=== PATIENT | female | born 1995 | race Caucasian/White ===

== ENCOUNTER 2021-09-09 01:36 | Inpatient (IN) | payer OTHER, SELFPAY ==
[2021-09-09] VITALS (7 sets, daily range): BP systolic 104–151; BP diastolic 54–83; PULSE 72–96; RESP 14–18; TEMP 36.4–37.3; O2SAT 98–99; BMI 25.7
--- NOTE | ~2021-09-09 | CT_ITS ---
EXAMINATION: CT ABDOMEN AND PELVIS WITHOUT CONTRAST CLINICAL INFORMATION: Left flank pain COMPARISON: None TECHNIQUE: Multidetector volumetric imaging was performed from the superior aspect of the liver through the pubic symphysis. Sagittal and coronal reformatted images were obtained on the technologist's workstation. This CT examination was performed using dose optimization techniques as appropriate, variously including the following: *Automated exposure control *Adjustment of mA and/or kV according to patient size (this includes techniques or standardized protocols for targeted exams where dose is matched to indication/reason for exam; i.e. extremities or head) *Use of iterative reconstruction technique DLP: 440 mGy-cm FINDINGS: LUNG BASES: The visualized lung bases are unremarkable. LIVER, GALLBLADDER, AND BILIARY TREE: The liver is normal in size, shape, and attenuation. No focal hepatic lesion or biliary ductal dilatation is present. Gallbladder appears contracted. PANCREAS: Unremarkable. SPLEEN: Unremarkable. ADRENAL GLANDS: Unremarkable. KIDNEYS AND URETERS: Limited assessment of the renal parenchyma in the absence of intravenous contrast. No hydronephrosis bilaterally. There is suggestion of subtle perinephric stranding bilaterally. Small hypodensity in the mid right kidney favors a cyst; no follow-up recommended. No calculi identified. Small calculus in the lower lateral left pelvis is favored to represent a phlebolith. BLADDER: Unremarkable. GASTROINTESTINAL TRACT: No evidence of bowel obstruction or significant wall thickening. The appendix is unremarkable. No free fluid or free air is seen. ABDOMINAL WALL: No significant hernia is appreciated. LYMPH NODES: No lymphadenopathy is seen, though assessment is limited in the absence of intravenous contrast. VASCULAR: Unremarkable. PELVIC VISCERA: Unremarkable. OSSEOUS STRUCTURES: Bilateral L5 pars defects are noted. CT/CT abdomen pelvis wo con IMPRESSION: No hydronephrosis. Subtle bilateral perinephric stranding may be present, of uncertain clinical significance. There is limited assessment of the renal parenchyma in the absence of intravenous contrast, and correlation with urinalysis/laboratory values is advised, as pyelonephritis cannot be excluded. Fleischner guidelines were followed.
[2021-09-09 02:19] LABS: MANUAL DIFF FLAG NO
[2021-09-09 02:21] LABS: Basophils Percent Auto 0.3 % (0-2); Eosinophils Absolute Auto 0.1 X10*3/uL (0.0-0.4); Eosinophils Percent Auto 0.9 % (0-4); Hematocrit 34.2 % (37.0-47.0); Hemoglobin 11.5 g/dl (12.0-16.0); Imm Gran Abs Auto 0.05 X10*3/uL (0.00-0.03); Imm Gran Pct Auto 0.4 % (0.0-0.4); Lymphocytes Absolute Auto 2.5 X10*3/uL (1.2-4.9); Lymphocytes Percent Auto 17.2 % (20-40); Mean Corpuscular HGB Conc 33.6 g/dl (31.0-35.0); Mean Corpuscular Hemoglobin 27.9 pg (27.0-33.0); Mean Platelet Volume 8.9 fL (9.4-12.3); Monocytes Absolute Auto 1.1 X10*3/uL (0.1-1.2); Monocytes Percent Auto 7.6 % (2-11); Neutrophils Absolute Auto 10.5 x10*3/uL (2.0-8.3); Neutrophils Percent Auto 73.6 % (45-73); Platelet Count 331 X10*3/uL (160-400); Red Blood Count 4.12 X10*6/uL (4.20-5.50); Red Cell Distribution Width 12.6 % (11.0-16.0); White Blood Count 14.3 X10*3/uL (4.8-10.8)
[2021-09-09 02:22] LABS: Appearance Urine CLEAR; Color Urine YELLOW; Glucose Urine UA NEG (NEG); Leukocyte Esterase Urine NEG (NEG); Nitrite Urine NEG (NEG); UACC Culture Trigger NO; Urine Blood TRACE (NEG); Urine Ketones NEG (NEG); Urine Protein 1+ MG/DL (NEG-TRACE)
[2021-09-09 02:29] LABS: UPreg QC Valid YES; Urine Pregnancy NEGATIVE (NEGATIVE)
[2021-09-09 02:35] LABS: Bacteria Urine TRACE /LPF; Mucus Urine 1+ /LPF; RBC Urine 0-2 /HPF (0); Squamous Epithelial Cell Urine 2+ /LPF; WBC Urine 0 /HPF (0-4)
[2021-09-09 02:37] LABS: Alanine Aminotransferase 13 U/L (0-31); Alkaline Phosphatase 28 U/L (39-117); Anion Gap 11 (12-20); Aspartate Amino Transferase 19 U/L (5-31); Bilirubin Total 0.3 mg/dL (0.0-1.0); Blood Urea Nitrogen 20 mg/dL (9-16); Calcium 9.8 mg/dL (8.4-10.2); Carbon Dioxide 24 mmol/L (22-29); Chloride 107 mmol/L (96-108); Creatinine Clr Calc Pharmacy 49.2; Estimated Glomerular Filt Rate 40; Glucose Random 87 mg/dL (60-115); Sodium 138 mmol/L (135-145); Total Protein 6.3 g/dL (6.5-8.0)
--- NOTE | 2021-09-09 03:07 | ED_ITS ---
HPI - Abdominal Pain General Chief Complaint: Abdominal Pain Stated Complaint: kidney pain Time Seen by Provider: 09/09/21 03:06 Source: patient Mode of arrival: ambulatory Limitations: no limitations History of Present Illness MD elicited complaint: abdominal pain and flank pain Onset (ago): day(s) (5) Pain Consistency: constant Location: LUQ and L flank Severity: moderate Quality: stabbing Radiation: LLQ Migration to: no migration Exacerbating factors: nothing Relieving factors: nothing Context: other (fam hx of kidney stones. ) Associated symptoms: nausea and chills Treatments prior to arrival: other (on cipro as of saturday by PCP but only had blood in urine) Related Data Allergies Allergy/AdvReac Type Severity Reaction Status Date / Time amoxicillin [AMOXICILLIN] Allergy Mild HIVES Verified 09/09/21 01:51 clindamycin [CLINDAMYCIN] Allergy Mild HIVES Verified 09/09/21 01:51 Penicillins [PENICILLINS] Allergy Mild HIVES Verified 09/09/21 01:51 Sulfa (Sulfonamide Allergy Mild HIVES Verified 09/09/21 01:51 Antibiotics) [SULFA (SULFONAMIDE ANTIBIOTICS)] Review of Systems Review of Systems Constitutional : No Fever, No Chills ENT/Mouth : No sore throat Eyes: No Eye Pain, No Swelling, No Redness Cardiovascular : No Chest Pain, No SOB Respiratory : No Cough, No Sputum, No Wheezing Gastrointestinal : positive Nausea, no Vomiting, No Diarrhea, positive abdominal pain Genitourinary : no Dysuria, positive urinary frequency, positive Hematuria, positive Flank Pain, no hesitancy Musculoskeletal : No joint pain, No Myalgias Skin : No Skin Lesions, No rash Neuro : No Weakness, No Numbness, No Headache Psych : No Anxiety/Panic, No Depression Heme/Lymph: No Bruising, No Lymphadenopathy Endocrine : No Polyuria, No Polydipsia All other systems reviewed and are negative Physical Exam Vital Signs: Vital Signs: Last Vital Signs Temp 97.7 F 09/09/21 01:46 Pulse 96 09/09/21 01:46 Resp 16 09/09/21 01:46 BP 151/80 H 09/09/21 01:46 Pulse Ox 99 09/09/21 01:46 BMI result Body Mass Index 25.7 Appearance: Alert. Oriented X3. No acute distress. Eyes: Pupils equal, round and reactive to light. ENT: Pharynx normal. Neck: Normal inspection. Neck supple. CVS: Normal heart rate and rhythm. Pulses normal. Respiratory: No respiratory distress. Breath sounds normal. Abdomen: Soft and nontender. Back: mod L CVA ttp Skin: Skin warm and dry. Normal skin color. Normal skin turgor. Extremities: No lower extremity edema. No calf ttp Neuro: Oriented X 3. No motor deficit. No sensory deficit. Course Course Course Narrative: Cr 1.55 - 2L of IVF ordered repeat IV morphine for pain will admit for further management of GABRIEL and likely pyelonephritis MDM - Abdominal Pain MDM Narrative Medical decision making narrative: 26 yo female with no sig PMH does have a strong family hx of kidney stones, currently on cipro for symptoms but states only hematuria. At this time will need labs, UA, CT scan for renal colic. Declines pain medications at this time. Dispo per result and findings. Differential Diagnosis Differential diagnosis: Likely calculus of kidney and renal colic; Unlikely acute appendicitis Lab Data Result diagrams: 09/09/21 02:01 09/09/21 05:22 Labs: Lab Results 09/09/21 09/09/21 09/09/21 Range/Units 02:01 02:01 02:01 WBC 14.3 H (4.8-10.8) X10*3/uL RBC 4.12 L (4.20-5.50) X10*6/uL Hgb 11.5 L (12.0-16.0) g/dl Hct 34.2 L (37.0-47.0) % MCV 83.0 (80.0-98.0) fL MCH 27.9 (27.0-33.0) pg MCHC 33.6 (31.0-35.0) g/dl RDW 12.6 (11.0-16.0) % Plt Count 331 (160-400) X10*3/uL MPV 8.9 L (9.4-12.3) fL Immature Gran % (Auto) 0.4 (0.0-0.4) % Neut % (Auto) 73.6 H (45-73) % Lymph % (Auto) 17.2 L (20-40) % [place] % (Auto) 7.6 (2-11) % Eos % (Auto) 0.9 (0-4) % Baso % (Auto) 0.3 (0-2) % Lymph # (Auto) 2.5 (1.2-4.9) X10*3/uL [place] # (Auto) 1.1 (0.1-1.2) X10*3/uL Eos # (Auto) 0.1 (0.0-0.4) X10*3/uL Baso # (Auto) 0.0 (0.0-0.2) X10*3/uL Abs Immat Gran (auto) 0.05 H (0.00-0.03) X10*3/uL Absolute Neuts (auto) 10.5 H (2.0-8.3) x10*3/uL Absolute Nucleated RBC 0.000 (0.0-0.012) X10*3/uL Nucleated RBC % (auto) 0.0 (0.0-0.2) /100WBC Sodium 138 (135-145) mmol/L Potassium 4.0 (3.3-5.1) mmol/L Chloride 107 (96-108) mmol/L Carbon Dioxide 24 (22-29) mmol/L Anion Gap 11 L (12-20) BUN 20 H (9-16) mg/dL Creatinine 1.55 H (0.5-1.4) mg/dL Estim Creat Clear Calc 49.2 Estimated GFR 40 Random Glucose 87 (60-115) mg/dL Lactic Acid (0.5-2.0) mmol/L Calcium 9.8 (8.4-10.2) mg/dL Total Bilirubin 0.3 (0.0-1.0) mg/dL AST 19 (5-31) U/L ALT 13 (0-31) U/L Alkaline Phosphatase 28 L (39-117) U/L Total Protein 6.3 L (6.5-8.0) g/dL Albumin 4.0 (3.5-5.0) g/dL Urine Color YELLOW Urine Appearance CLEAR Urine pH 6.0 (5.0-8.0) Ur Specific [place] 1.010 (1.005-1.025) Urine Protein 1+ H (NEG-TRACE) MG/DL Urine Glucose (UA) NEG (NEG) MG/DL Urine Ketones NEG (NEG) MG/DL Urine Blood TRACE (NEG) Urine Nitrite NEG (NEG) Ur Leukocyte Esterase NEG (NEG) Urine RBC 0-2 (0) /HPF Urine WBC 0 (0-4) /HPF Ur Squamous Epith Cells 2+ /LPF Urine Bacteria TRACE /LPF Urine Mucus 1+ /LPF Urine Test (NEGATIVE) 09/09/21 09/09/21 09/09/21 Range/Units 02:01 04:29 05:22 WBC (4.8-10.8) X10*3/uL RBC (4.20-5.50) X10*6/uL Hgb (12.0-16.0) g/dl Hct (37.0-47.0) % MCV (80.0-98.0) fL MCH (27.0-33.0) pg MCHC (31.0-35.0) g/dl RDW (11.0-16.0) % Plt Count (160-400) X10*3/uL MPV (9.4-12.3) fL Immature Gran % (Auto) (0.0-0.4) % Neut % (Auto) (45-73) % Lymph % (Auto) (20-40) % [place] % (Auto) (2-11) % Eos % (Auto) (0-4) % Baso % (Auto) (0-2) % Lymph # (Auto) (1.2-4.9) X10*3/uL [place] # (Auto) (0.1-1.2) X10*3/uL Eos # (Auto) (0.0-0.4) X10*3/uL Baso # (Auto) (0.0-0.2) X10*3/uL Abs Immat Gran (auto) (0.00-0.03) X10*3/uL Absolute Neuts (auto) (2.0-8.3) x10*3/uL Absolute Nucleated RBC (0.0-0.012) X10*3/uL Nucleated RBC % (auto) (0.0-0.2) /100WBC Sodium (135-145) mmol/L Potassium (3.3-5.1) mmol/L Chloride (96-108) mmol/L Carbon Dioxide (22-29) mmol/L Anion Gap (12-20) BUN (9-16) mg/dL Creatinine 1.50 H (0.5-1.4) mg/dL Estim Creat Clear Calc 50.8 Estimated GFR 41 Random Glucose (60-115) mg/dL Lactic Acid 0.7 (0.5-2.0) mmol/L Calcium (8.4-10.2) mg/dL Total Bilirubin (0.0-1.0) mg/dL AST (5-31) U/L ALT (0-31) U/L Alkaline Phosphatase (39-117) U/L Total Protein (6.5-8.0) g/dL Albumin (3.5-5.0) g/dL Urine Color Urine Appearance Urine pH (5.0-8.0) Ur Specific [place] (1.005-1.025) Urine Protein (NEG-TRACE) MG/DL Urine Glucose (UA) (NEG) MG/DL Urine Ketones (NEG) MG/DL Urine Blood (NEG) Urine Nitrite (NEG) Ur Leukocyte Esterase (NEG) Urine RBC (0) /HPF Urine WBC (0-4) /HPF Ur Squamous Epith Cells /LPF Urine Bacteria /LPF Urine Mucus /LPF Urine Test NEGATIVE (NEGATIVE) Discharge Plan Discharge Clinical Impression: GABRIEL (acute kidney injury), Pyelonephritis, Leukocytosis Patient Disposition: Admitted As Inpatient [facility] Past Medical History Attestation statement: The following information was validated with the patient. Medical History No known health problems Social History Social History (Updated 09/09/21 @ 03:21 by Ashly Srivastava DO) Patient Tobacco Use Status: Never used Tobacco Advance Directives: No Advance Directives Information Provided: Yes Patient : No
[2021-09-09] MEDS: 0.9 % Sodium Chloride 1,000 ML 999 ML IVCONT ×2 (03:09→04:22)
--- NOTE | 2021-09-09 03:18 | PC.NURSE ---
Pt returns from CT, awaiting results @ this time. IVF infusing per MAR.
[2021-09-09] MEDS: ondansetron HCL 4 MG/2 ML VIAL IVPUSH ×2 (04:21→18:55)
[2021-09-09] MEDS: Morphine Sulfate 2 MG/ML CARTRIDGE IVPUSH ×2 (04:21→10:38)
[2021-09-09] MEDS: cefTRIAXone sodium 1 GM in 0.9 % Sodium Chloride 50 ML IV (04:41)
[2021-09-09 04:48] LABS: Lactic Acid 0.7 mmol/L (0.5-2.0)
--- NOTE | 2021-09-09 05:36 | PC.NURSE ---
Pt requesting additional pain medication, notified.
[2021-09-09 05:41] LABS: Creatinine Clr Calc Pharmacy 50.8; Estimated Glomerular Filt Rate 41
[2021-09-09] MEDS: Morphine Sulfate 4 MG/ML CARTRIDGE IVPUSH ×2 (05:44→07:34)
--- NOTE | 2021-09-09 05:50 | PC.NURSE ---
Refused to go with XRay when called for CXR.
[2021-09-09] MEDS: 0.9 % Sodium Chloride 1,000 ML 100 ML IVCONT (06:01)
[2021-09-09 06:09] LABS: COVID-19 Test Negative (Negative)
--- NOTE | 2021-09-09 07:24 | PC.NURSE ---
pt alert and reports right sided flank pain 6/10 and is requesting something else for pain
--- NOTE | 2021-09-09 08:01 | PM.IMHP ---
History of Present Illness Date of Service: 09/09/21 Chief Complaint: left flank pain 26 year old female, otherwise healthy who experienced urinary symptoms about a week ago and was seen in the offeice about 3 days ago and prescribed antibiotics for UTI and comes in with left flank pain and not feeing well. She describes no dysyria and no fever. Work up in ED shows wBC of 14K, UA shows trace bacteria otherwise unremarkable. CT of [place] shows bilateral perinephric standing, Creatinine is 1.5. Review of Systems Review of Systems: Gen: no fever Resp: no sob, no cough CV: no chest, no POST, no leg edema GI: No n/v, no abd pain : flnak pain, no dysuria Neuro: No confusion Yes all other systems are reviewed and are negative [facility] Medical History (Updated 09/09/21 @ 08:08 by Marcin Berumen MD) Acne No known health problems Pertinent family history: reports no family of chronic disease and no chronic uranry issues Social History Patient Tobacco Use Status: Never used Tobacco Use of substances other than those prescribed or required for medical reasons: No Advance Directives: No Advance Directives Information Provided: Yes Patient : No Meds Allergies Allergy/AdvReac Type Severity Reaction Status Date / Time amoxicillin [AMOXICILLIN] Allergy Mild HIVES Verified 09/09/21 01:51 clindamycin [CLINDAMYCIN] Allergy Mild HIVES Verified 09/09/21 01:51 Penicillins [PENICILLINS] Allergy Mild HIVES Verified 09/09/21 01:51 Sulfa (Sulfonamide Allergy Mild HIVES Verified 09/09/21 01:51 Antibiotics) [SULFA (SULFONAMIDE ANTIBIOTICS)] Active Medications: Current Medications Sodium Chloride (Ns) 1,000 mls @ 100 mls/hr IVCONT .Q10H SHANTEL Last Admin: 09/09/21 06:01 Dose: 100 mls/hr Documented by: Home Medications Medication Instructions Recorded Confirmed Last Taken Type No Known Home Meds 09/09/21 09/09/21 Unknown History Physical Exam Vital Signs and Narrative: Vital Signs: Last Vital Signs Temp 98.0 F 09/09/21 07:59 Pulse 74 09/09/21 07:59 Resp 16 09/09/21 07:59 BP 125/75 09/09/21 07:59 Pulse Ox 98 09/09/21 07:59 BMI result Body Mass Index 25.7 Const: Other: Constitutional: Alert, in no distress, Mental Status: Oriented to person, place and time. Eyes: Pupils are equal, round and reactive to light. Ear, Nose and Throat: Oropharynx clear, mucous membranes moist. Ears and nose without eformities. Trachea midline. Respiratory: Clear to auscultation. No wheezing, rales or rhonchi. Cardiovascular: S1 S2 regular. No murmurs, rubs or gallops. Gastrointestinal: Abdomen soft, non-tender, non-distended. Normal bowel sounds.? : mild left flank tenderness Neurologic: Cranial nerves II-XII grossly intact. No focal neurological deficits. Moves all extremities spontaneously.? Skin: No rashes or lesions.? Musculoskeletal: No cyanosis or clubbing. Psychiatric: Normal mood and affect? Results Labs CBC and Chem 7: 09/09/21 02:01 09/09/21 05:22 Labs: Laboratory Results - last 24 hr 09/09/21 09/09/21 09/09/21 02:01 02:01 02:01 MCV 83.0 MCH 27.9 MCHC 33.6 RDW 12.6 Plt Count 331 MPV 8.9 L Immature Gran % (Auto) 0.4 Neut % (Auto) 73.6 H Lymph % (Auto) 17.2 L [place] % (Auto) 7.6 Eos % (Auto) 0.9 Baso % (Auto) 0.3 Lymph # (Auto) 2.5 [place] # (Auto) 1.1 Eos # (Auto) 0.1 Baso # (Auto) 0.0 Abs Immat Gran (auto) 0.05 H Absolute Neuts (auto) 10.5 H Absolute Nucleated RBC 0.000 Nucleated RBC % (auto) 0.0 Anion Gap 11 L Estim Creat Clear Calc 49.2 Estimated GFR 40 Random Glucose 87 Lactic Acid Calcium 9.8 Total Bilirubin 0.3 AST 19 ALT 13 Alkaline Phosphatase 28 L Total Protein 6.3 L Albumin 4.0 Urine Color YELLOW Urine Appearance CLEAR Urine pH 6.0 Ur Specific [place] 1.010 Urine Protein 1+ H Urine Glucose (UA) NEG Urine Ketones NEG Urine Blood TRACE Urine Nitrite NEG Ur Leukocyte Esterase NEG Urine RBC 0-2 Urine WBC 0 Ur Squamous Epith Cells 2+ Urine Bacteria TRACE Urine Mucus 1+ Urine Test COVID-19 (HEMANTH) COVID-19 Clin Com 09/09/21 09/09/21 09/09/21 02:01 04:29 05:22 MCV MCH MCHC RDW Plt Count MPV Immature Gran % (Auto) Neut % (Auto) Lymph % (Auto) [place] % (Auto) Eos % (Auto) Baso % (Auto) Lymph # (Auto) [place] # (Auto) Eos # (Auto) Baso # (Auto) Abs Immat Gran (auto) Absolute Neuts (auto) Absolute Nucleated RBC Nucleated RBC % (auto) Anion Gap Estim Creat Clear Calc 50.8 Estimated GFR 41 Random Glucose Lactic Acid 0.7 Calcium Total Bilirubin AST ALT Alkaline Phosphatase Total Protein Albumin Urine Color Urine Appearance Urine pH Ur Specific [place] Urine Protein Urine Glucose (UA) Urine Ketones Urine Blood Urine Nitrite Ur Leukocyte Esterase Urine RBC Urine WBC Ur Squamous Epith Cells Urine Bacteria Urine Mucus Urine Test NEGATIVE COVID-19 (HEMANTH) COVID-19 Clin Com 09/09/21 05:48 MCV MCH MCHC RDW Plt Count MPV Immature Gran % (Auto) Neut % (Auto) Lymph % (Auto) [place] % (Auto) Eos % (Auto) Baso % (Auto) Lymph # (Auto) [place] # (Auto) Eos # (Auto) Baso # (Auto) Abs Immat Gran (auto) Absolute Neuts (auto) Absolute Nucleated RBC Nucleated RBC % (auto) Anion Gap Estim Creat Clear Calc Estimated GFR Random Glucose Lactic Acid Calcium Total Bilirubin AST ALT Alkaline Phosphatase Total Protein Albumin Urine Color Urine Appearance Urine pH Ur Specific [place] Urine Protein Urine Glucose (UA) Urine Ketones Urine Blood Urine Nitrite Ur Leukocyte Esterase Urine RBC Urine WBC Ur Squamous Epith Cells Urine Bacteria Urine Mucus Urine Test COVID-19 (HEMANTH) Negative COVID-19 Clin Com See Note Imaging Radiologist's Impressions: Impressions Abdomen/Pelvis CT 09/09/21 03:14 IMPRESSION: No hydronephrosis. Subtle bilateral perinephric stranding may be present, of uncertain clinical significance. There is limited assessment of the renal parenchyma in the absence of intravenous contrast, and correlation with urinalysis/laboratory values is advised, as pyelonephritis cannot be excluded. Fleischner guidelines were followed. Assessment and Plan (1) GABRIEL (acute kidney injury): Status: Acute (2) Pyelonephritis: Status: Acute Plan 26 year old female recently treated for UTI on outpatient basis and here with peristent flank pain, leukocytosis and has GABRIEL 1/UTI/Pyelonephritis--partially treated..Not septic -Treat with Ceftriaxone and if better by tomorrow change to oral Ceftin and discharge -follow cultures - Morphine, Oxycodone for pain 2/ GABRIEL--likely pre renal state--Hydraate and repeat labs tomorrow 3/ low riks for DVT--out of bed and ambulate Quality Stroke Does the patient have a stroke diagnosis?: No VTE Prior VTE?: No VTE Risk Level:: Medical - low VTE Device Contraindication: Treatment Not Indicated VTE Drug Contraindication: Treatment Not Indicated
[2021-09-09] MEDS: 0.9 % Sodium Chloride Flush 3 ML SYRINGE IVFLUSH (08:45)
[2021-09-09] MEDS: Dextrose 5 % and 0.45 % NaCl 1,000 ML 100 ML IVCONT ×2 (08:46→18:43)
[2021-09-09] MEDS: Acetaminophen 325 MG TABLET 650 MG PO ×2 (15:49→22:46)
[2021-09-09] MEDS: oxyCODONE HCl Immed Release 5 MG TABLET PO (15:49)
--- NOTE | 2021-09-09 17:46 | PC.NURSE ---
REPORT CALLED TO OVERFLOW UNIT.
--- NOTE | 2021-09-09 18:44 | PC.NURSE ---
Pt received from main ER: Pt AOX4 and offers no current complaints. Heart sounds normal and lungs clear. Pt abd soft and non-tender. Pt self ambulatory with steady gait.
--- NOTE | 2021-09-09 19:49 | PC.NURSE ---
Report taken from Floresita, this RN resuming care. Pt resting in bed with family at bedside, denies pain. Callbell within reach, continue to monitor.
[2021-09-09] MEDS: Melatonin 3 MG TABLET 6 MG PO (22:46)
[2021-09-10 01:40] VITALS: BP 98/51; PULSE 78; RESP 14; TEMP 36.8; O2SAT 96
[2021-09-10] MEDS: Dextrose 5 % and 0.45 % NaCl 1,000 ML 100 ML IVCONT (05:04)
[2021-09-10] MEDS: cefTRIAXone sodium 1 GM in 0.9 % Sodium Chloride 50 ML IV (06:55)
[2021-09-10 07:17] LABS: Hematocrit 33.3 % (37.0-47.0); Hemoglobin 10.8 g/dl (12.0-16.0); Mean Corpuscular HGB Conc 32.4 g/dl (31.0-35.0); Mean Corpuscular Hemoglobin 27.4 pg (27.0-33.0); Mean Corpuscular Volume 84.5 fL (80.0-98.0); Platelet Count 298 X10*3/uL (160-400); Red Blood Count 3.94 X10*6/uL (4.20-5.50); Red Cell Distribution Width 12.8 % (11.0-16.0); White Blood Count 6.7 X10*3/uL (4.8-10.8)
[2021-09-10 07:26] VITALS: BP 107/63; PULSE 77; RESP 16; TEMP 36.8; O2SAT 97
[2021-09-10] MEDS: Acetaminophen 325 MG TABLET 650 MG PO (07:26)
--- NOTE | 2021-09-10 07:26 | PC.NURSE ---
Pt received from shift commander: Pt AOX4 and offers no complaints. Heart sounds normal and lungs clear. Pt abd soft and non-tender. Pt denies any urinary s/sx.
[2021-09-10 07:40] LABS: Anion Gap 8 (12-20); Blood Urea Nitrogen 12 mg/dL (9-16); Calcium 8.5 mg/dL (8.4-10.2); Carbon Dioxide 26 mmol/L (22-29); Chloride 107 mmol/L (96-108); Creatinine Clr Calc Pharmacy 70.6; Estimated Glomerular Filt Rate > 60; Glucose Random 93 mg/dL (60-115); Potassium 4.1 mmol/L (3.3-5.1); Sodium 137 mmol/L (135-145)
--- NOTE | 2021-09-10 08:39 | PM.DS ---
DS: Providers Provider Date of Service: 09/10/21 Date of admission: 09/09/21 07:57 Primary care physician: Danny Andrade MD DS: Diagnosis Discharge Diagnosis (1) ALLAN (acute kidney injury): Status: Acute (2) Pyelonephritis: Status: Acute DS: Summary Hospital Course Hospital Course: Chief Complaint: left flank pain 26 year old female, otherwise healthy who experienced urinary symptoms about a week ago and was seen in the offeice about 3 days ago and prescribed antibiotics for UTI and comes in with left flank pain and not feeing well. She describes no dysyria and no fever. Work up in ED shows wBC of 14K, UA shows trace bacteria otherwise unremarkable. CT of [place] shows bilateral perinephric standing, Creatinine is 1.5. Hospital course: Patient was admitted and treated for acute pyelonephritis that has been partially treated on outpatient basis with cipro. In the hospital was treated with IV Ceftriaxone with resolution of symptoms today, WBC has normalized from 14 to 6. She will be discharged to complete 10 day course of antibiotics with Ceftin 500 bid. Allan which was due to pre renal azotemia has resolved, creatine is down from 1.55 to 1.08 today. She is advised to follow up with PCP in a week Time Spent with Patient Time attestation: Total time spent providing and/or coordinating discharge services: Discharge coordination time: Greater than 30 minutes Quality: Stroke Does the patient have a stroke diagnosis?: No Physical Exam Vital Signs: Vital Signs: Last Vital Signs Temp 98.3 F 09/10/21 07:26 Pulse 77 09/10/21 07:26 Resp 16 09/10/21 07:26 BP 107/63 09/10/21 07:26 Pulse Ox 97 09/10/21 07:26 BMI result Body Mass Index 25.7 DS: Data Data Completed and Pending Labs on day of discharge: Laboratory Results - last 24 hr 09/10/21 09/10/21 06:26 06:26 WBC 6.7 RBC 3.94 L Hgb 10.8 L Hct 33.3 L MCV 84.5 MCH 27.4 MCHC 32.4 RDW 12.8 Plt Count 298 MPV 9.0 L Absolute Nucleated RBC 0.000 Nucleated RBC % (auto) 0.0 Sodium 137 Potassium 4.1 Chloride 107 Carbon Dioxide 26 Anion Gap 8 L BUN 12 Creatinine 1.08 Estim Creat Clear Calc 70.6 Estimated GFR > 60 Random Glucose 93 Calcium 8.5 D Preliminary micro results at discharge 09/09/21 04:29 Blood Culture - Preliminary Blood - Venous No growth after 24 hours. 09/09/21 04:29 Blood Culture - Preliminary Blood - Venous No growth after 24 hours. Discharge Plan Discharge Anticipated Discharge Date/Time: 09/10/21 08:31 Patient Disposition: Home, Self-Care Discharge Diagnosis: Pyelonephritis, ALLAN Referrals: Danny Gross MD [Primary Care Provider] - 1 Week Discharge Medications: New cefuroxime axetil 500 mg tablet 500 mg PO BID 8 Days Qty: 16 0RF Discharge Orders: Discharge Order (Routine); Ordered 09/10/21 Ordered By: Marcin Berumen Diet: advance to usual diet Activity on Discharge: As tolerated Stand Alone Forms: Patient Portal Discharge page Care Plan Goals: Full recovery from pyelonephritis Health Concerns: UTI- Plan of Treatment: Take Ceftin as recommended and follow up with your Doctor in a week Assessment: as above
--- NOTE | 2021-09-10 10:07 | PC.NURSE ---
Pt D/C from ED overflow with instructions and eprescription. Pt states understanding and all further questions answered to pt satisfaction. All IV's removed prior to D/C. Pt walked to main hospital entrance to ride home.
--- NOTE | 2021-09-10 10:12 | MHC.CM.PN ---
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 PT REPORTS SHE RECEIVED THE [facility] (formerly [employer]) VACCINE AND BOOSTER. PT WILL DC HOME TODAY WITH NO SERVICES S/O TO TRANSPORT
== END 2021-09-10 09:30 | disposition home or self-care (01) | DRG 690 ==
LOC: HO.ED 05:44 → HO.EDOVER 08:04
PROVIDERS: Admitting Provider Internal Medicine; Emergency Provider Emergency Medicine; PCP Family Medicine; Visit Provider Internal Medicine
DX: N10 Acute pyelonephritis (principal); N17.9 Acute kidney failure, unspecified; Z20.822 Contact with and (suspected) exposure to COVID-19; Z88.0 Allergy status to penicillin; Z88.2 Allergy status to sulfonamides; Z79.899 Other long term (current) drug therapy
CPT/HCPCS: 36415; 74176; 80048; 80053; 81001; 81025; 82565; 83605; 85025; 85027; 87040; 87635; 96361; 96374; 96375; 96376; 99285; J0696; J2270; J2405